=== PATIENT | female | born 1955 | race Caucasian/White ===

== ENCOUNTER 2016-11-03 13:55 | Emergency (ER) | payer OTHER ==
[~2016-11-03] VITALS: Ht 170.2 cm; Wt 83.9 kg
[~2016-11-03 13:55] MED LIST: AMLO5TAB2 PO; APIX5TAB PO; CAR3125T PO; FUR40T PO
[2016-11-03 14:04] VITALS: BP 153/112
== END 2016-11-03 16:36 | disposition home or self-care (01) ==
LOC: EDBD 13:55 → ER 13:55
DX: L98.9 Disorder of the skin and subcutaneous tissue, unspecified (principal); Z87.891 Personal history of nicotine dependence; E78.5 Hyperlipidemia, unspecified; I10 Essential (primary) hypertension; Z90.49 Acquired absence of other specified parts of digestive tract; M10.9 Gout, unspecified; Z79.01 Long term (current) use of anticoagulants
CPT/HCPCS: 81002

== ENCOUNTER 2017-01-08 09:47 | Inpatient (IN) | payer OTHER ==
[~2017-01-08] VITALS: Ht 154.9 cm; Wt 83.3 kg
[2017-01-08] MEDS ORDERED: amLODIPine BESYLATE 5 MG TAB PO ONE ×2 (10:15→16:00)
[2017-01-08 10:58] LABS: Basophils # (auto) 0 uL; Basophils % (auto) 0.2 % (0.0-2.0); Eosinophils # (auto) 0 uL; Eosinophils % (auto) 0.5 % (0.0-7.0); Hematocrit 40.7 % (36.0-46.0); Hemoglobin 13.7 g/dL (12.2-16.2); Lymphocytes # (auto) 1.1 uL; Lymphocytes % (auto) 14.1 % (10.0-50.0); Mean Corpuscular Hemoglobin 28.6 pg (28.0-32.0); Mean Corpuscular Hgb Conc. 33.5 g/dL (32.0-36.0); Mean Corpuscular Volume 85.2 fL (80.0-100.0); Mean Platelet Volume 7.1 fL (6.9-10.8); Monocytes # (auto) 0.4 uL; Monocytes % (auto) 5.3 % (0.0-12.0); Neutrophils # (auto) 6.3 uL; Neutrophils % (auto) 79.9 % (37.0-80.0); Nucleated Red Blood Cells % 0.1 %; Platelet Count (auto) 282 10^3/uL (140-450); Red Cell Distribution Width 15.1 % (11.8-14.3); White Blood Cell 7.9 10^3/uL (4.4-10.8)
[2017-01-08 11:13] LABS: Albumin 3.3 g/dL (3.4-5.0); BUN/Creatinine Ratio 12.4; Calcium 8.5 mg/dL (8.5-10.1)
[2017-01-08 11:18] LABS: Bilirubin, Total 0.4 mg/dL (0.2-1.0); Total Protein 7.4 g/dL (6.4-8.2)
[2017-01-08 11:21] LABS: Potassium 2.8 mmol/L (3.5-5.1)
[2017-01-08] MEDS: SODIUM CHLORIDE 0.9% 1,000 ML IV ONE (11:33)
[2017-01-08] MEDS ORDERED: SODIUM CHLORIDE 0.9% 1,000 ML IV ONE (11:33)
[2017-01-08] MEDS ORDERED: THIAMINE HCL 100 MG/ML 2ML VIAL IV ONE (11:45)
[2017-01-08] MEDS ORDERED: POTASSIUM CHL 10% (20 MEQ/15ML) 15ml ORAL SOLN PO ONE (11:45)
[2017-01-08 13:27] LABS: Urine RBC None Seen /hpf (0 - 4)
[2017-01-08 13:43] LABS: Urine Bilirubin Negative (Negative); Urine Blood Negative /uL (Negative); Urine Color Yellow (Yellow); Urine Glucose Normal (Normal); Urine Ketone Negative (Negative); Urine Mucus FEW (None Seen); Urine Nitrite Negative (Negative); Urine Urobilinogen Normal (Negative)
[2017-01-08] MEDS ORDERED: ENOXAPARIN SOD 100 MG/1 ML SYRINGE SC ONE (15:00)
[2017-01-08] MEDS ORDERED: FUROSEMIDE 40 MG TAB PO ONE (15:45)
[2017-01-08] MEDS ORDERED: ASPirin-EC 81 mg tab PO ONE (15:45)
[2017-01-08] MEDS ORDERED: POTASSIUM CHL 10 Meq TABLET PO ONE (15:45)
[2017-01-08] MEDS ORDERED: HYDROcodone-ACET 5/325MG TAB PO PRN (15:45)
[2017-01-08] MEDS ORDERED: ONDANSETRON HCL 4 MG/2 ML VIAL IV PRN (15:45)
[2017-01-08] MEDS ORDERED: TEMAZEPAM 15 MG CAP PO PRN (15:45)
[2017-01-08] MEDS ORDERED: NITROGLYCERIN 0.4 MG SL TAB SL PRN (15:45)
[2017-01-08] MEDS ORDERED: ACETAMINOPHEN 325 MG TAB PO PRN (15:45)
[2017-01-08] MEDS ORDERED: DOCUSATE SOD 100 MG CAP PO PRN (15:45)
[2017-01-08] MEDS ORDERED: cefTRIAXone 1GM/50ML D5W 50 ML IV ONE (16:00)
[2017-01-08] MEDS ORDERED: cloNIDine HCL 0.1 MG TAB PO PRN (16:30)
[2017-01-08] MEDS ORDERED: LABETALOL HCL 5 MG/ML ML 20ML VIAL IV PRN (16:30)
[2017-01-08 16:32] LABS: Temperature: 21.3 C (20.0-25.0)
[2017-01-08] MEDS: BOOST PLUS 8 ounce PO SCH (18:00)
[2017-01-08 20:51] VITALS: BP 157/98
[2017-01-08] MEDS: SODIUM CHLOR 0.9% PF (SALINE LOCK) 10ML VIAL IV SCH (21:15)
[2017-01-08] MEDS: CARVEDILOL 3.125 MG TAB PO SCH (21:16)
[2017-01-08] MEDS: ATORVASTATIN 20 MG TAB PO SCH (21:16)
[2017-01-08] MEDS: APIXABAN 5 MG TAB PO SCH (21:16)
[2017-01-08] MEDS: FAMOTIDINE 20 MG TAB PO SCH (21:17)
[2017-01-08 22:01] VITALS: BP 154/90
[2017-01-08 22:16] LABS: BUN/Creatinine Ratio 10.9; Calcium 7.9 mg/dL (8.5-10.1)
[2017-01-08 22:23] LABS: Potassium 2.5 mmol/L (3.5-5.1)
[2017-01-08] MEDS ORDERED: POTASSIUM CHL 20 Meq TABLET PO ONE (23:30)
[2017-01-09 04:58] VITALS: BP 148/71
[2017-01-09] MEDS: SODIUM CHLOR 0.9% PF (SALINE LOCK) 10ML VIAL IV SCH ×3 (05:00→22:13)
[2017-01-09] MEDS: BOOST PLUS 8 ounce PO SCH ×3 (05:00→17:42)
[2017-01-09 06:17] LABS: Basophils # (auto) 0 uL; Basophils % (auto) 0.3 % (0.0-2.0); Eosinophils # (auto) 0.1 uL; Eosinophils % (auto) 1.5 % (0.0-7.0); Hematocrit 40.4 % (36.0-46.0); Hemoglobin 13.6 g/dL (12.2-16.2); Lymphocytes # (auto) 1.2 uL; Lymphocytes % (auto) 18.1 % (10.0-50.0); Mean Corpuscular Hemoglobin 28.8 pg (28.0-32.0); Mean Corpuscular Hgb Conc. 33.6 g/dL (32.0-36.0); Mean Corpuscular Volume 85.8 fL (80.0-100.0); Mean Platelet Volume 7.6 fL (6.9-10.8); Monocytes # (auto) 0.5 uL; Monocytes % (auto) 6.8 % (0.0-12.0); Neutrophils # (auto) 4.9 uL; Neutrophils % (auto) 73.3 % (37.0-80.0); Nucleated Red Blood Cells % 0.1 %; Platelet Count (auto) 290 10^3/uL (140-450); Red Cell Distribution Width 14.9 % (11.8-14.3); White Blood Cell 6.6 10^3/uL (4.4-10.8)
[2017-01-09 06:49] LABS: Albumin 3.1 g/dL (3.4-5.0); BUN/Creatinine Ratio 8.8
[2017-01-09 07:02] LABS: Bilirubin, Total 0.5 mg/dL (0.2-1.0); Total Protein 7.4 g/dL (6.4-8.2)
[2017-01-09 07:28] LABS: Potassium 2.7 mmol/L (3.5-5.1)
[2017-01-09 09:44] VITALS: BP 144/84
[2017-01-09] MEDS ORDERED: ENOXAPARIN SOD 40 MG/0.4 ML SYRINGE SC SCH (10:00)
[2017-01-09] MEDS: cefTRIAXone 1GM/50ML D5W 50 ML IV SCH (10:54)
[2017-01-09] MEDS: MULTIPLE VITAMIN TAB PO SCH (10:56)
[2017-01-09] MEDS: APIXABAN 5 MG TAB PO SCH ×2 (10:57→22:13)
[2017-01-09] MEDS: POTASSIUM CHL 10 Meq TABLET PO SCH (10:57)
[2017-01-09] MEDS: FUROSEMIDE 40 MG TAB PO SCH (10:58)
[2017-01-09] MEDS: CARVEDILOL 3.125 MG TAB PO SCH ×2 (10:58→22:13)
[2017-01-09] MEDS: amLODIPine BESYLATE 5 MG TAB PO SCH (10:59)
[2017-01-09] MEDS: FAMOTIDINE 20 MG TAB PO SCH ×2 (10:59→22:14)
[2017-01-09] MEDS: ASPirin-EC 81 mg tab PO SCH (10:59)
[2017-01-09 12:21] VITALS: BP 161/113
[2017-01-09 14:00] LABS: BUN/Creatinine Ratio 9.7; Calcium 8.1 mg/dL (8.5-10.1)
[2017-01-09 14:05] LABS: Potassium 2.7 mmol/L (3.5-5.1)
[2017-01-09] MEDS ORDERED: POTASSIUM CHL 20 Meq TABLET PO ONE (16:45)
[2017-01-09 16:59] VITALS: BP 139/89
[2017-01-09 21:51] VITALS: BP 155/89
[2017-01-09] MEDS: ATORVASTATIN 20 MG TAB PO SCH (22:14)
[2017-01-10 04:42] VITALS: BP 142/95
[2017-01-10] MEDS: SODIUM CHLOR 0.9% PF (SALINE LOCK) 10ML VIAL IV SCH (06:00)
[2017-01-10] MEDS: BOOST PLUS 8 ounce PO SCH (07:28)
[2017-01-10 07:29] LABS: Basophils # (auto) 0 uL; Basophils % (auto) 0.6 % (0.0-2.0); Eosinophils # (auto) 0.1 uL; Eosinophils % (auto) 1.8 % (0.0-7.0); Hematocrit 42.6 % (36.0-46.0); Hemoglobin 14.2 g/dL (12.2-16.2); Lymphocytes # (auto) 1.4 uL; Lymphocytes % (auto) 21.6 % (10.0-50.0); Mean Corpuscular Hemoglobin 28.9 pg (28.0-32.0); Mean Corpuscular Hgb Conc. 33.5 g/dL (32.0-36.0); Mean Corpuscular Volume 86.4 fL (80.0-100.0); Mean Platelet Volume 7.6 fL (6.9-10.8); Monocytes # (auto) 0.5 uL; Neutrophils # (auto) 4.3 uL; Nucleated Red Blood Cells % 0.1 %; Platelet Count (auto) 296 10^3/uL (140-450); Red Cell Distribution Width 15.1 % (11.8-14.3); White Blood Cell 6.4 10^3/uL (4.4-10.8)
[2017-01-10 07:50] LABS: Albumin 3.3 g/dL (3.4-5.0); Calcium 8.7 mg/dL (8.5-10.1); Potassium 3.4 mmol/L (3.5-5.1)
[2017-01-10 08:01] LABS: Bilirubin, Total 0.7 mg/dL (0.2-1.0); Total Protein 7.7 g/dL (6.4-8.2)
[2017-01-10 08:48] VITALS: BP 145/59
[2017-01-10] MEDS: cefTRIAXone 1GM/50ML D5W 50 ML IV SCH (09:00)
[2017-01-10] MEDS ORDERED: POTASSIUM CHL 10 Meq TABLET PO ONE (09:45)
[2017-01-10 09:55] VITALS: BP 145/59
[2017-01-10] MEDS: ASPirin-EC 81 mg tab PO SCH (10:13)
[2017-01-10] MEDS: MULTIPLE VITAMIN TAB PO SCH (10:13)
[2017-01-10] MEDS: APIXABAN 5 MG TAB PO SCH (10:13)
[2017-01-10] MEDS: CARVEDILOL 3.125 MG TAB PO SCH (10:14)
[2017-01-10] MEDS: amLODIPine BESYLATE 5 MG TAB PO SCH (10:14)
[2017-01-10] MEDS: FUROSEMIDE 40 MG TAB PO SCH (10:14)
[2017-01-10] MEDS: POTASSIUM CHL 10 Meq TABLET PO SCH (10:14)
[2017-01-10] MEDS: FAMOTIDINE 20 MG TAB PO SCH (10:14)
[2017-01-10 11:30] VITALS: BP 144/78
== END 2017-01-10 11:43 | disposition home or self-care (01) | DRG 291 ==
LOC: EDBD 09:47 → ER 09:47 → TELE 09:48 → TELE-CENTR 19:45
PROVIDERS: ADMIT Internal Medicine; ATTEND Internal Medicine
DX: I13.0 Hypertensive heart and chronic kidney disease with heart failure and stage 1 through stage 4 chronic kidney disease, or unspecified chronic kidney disease (principal); I50.43 Acute on chronic combined systolic (congestive) and diastolic (congestive) heart failure; E44.0 Moderate protein-calorie malnutrition; D68.69 Other thrombophilia; I48.92 Unspecified atrial flutter; N18.3 Chronic kidney disease, stage 3 (moderate); E87.6 Hypokalemia; E78.5 Hyperlipidemia, unspecified; I48.91 Unspecified atrial fibrillation; N39.0 Urinary tract infection, site not specified; M10.9 Gout, unspecified; Z87.891 Personal history of nicotine dependence; Z82.49 Family history of ischemic heart disease and other diseases of the circulatory system; Z89.511 Acquired absence of right leg below knee; Z90.49 Acquired absence of other specified parts of digestive tract; Z68.34 Body mass index [BMI] 34.0-34.9, adult
CPT/HCPCS: 36415; 71010; 80048; 80053; 80307; 81001; 83735; 83880; 84443; 84484; 85025; 87045; 87086; 87493; 87899; 93005; 93306; 93886; 97163; J0696